=== PATIENT | female | born 1955 | race Caucasian/White ===

== ENCOUNTER → 2017-08-29 | Outpatient (CLI) | payer OTHER | LOC: CVU 06:50 | PROVIDERS: ATTEND Internal Medicine | DX: I70.203 Unspecified atherosclerosis of native arteries of extremities, bilateral legs (principal); I10 Essential (primary) hypertension; E11.51 Type 2 diabetes mellitus with diabetic peripheral angiopathy without gangrene; E78.5 Hyperlipidemia, unspecified; Z87.891 Personal history of nicotine dependence | CPT/HCPCS: 93922; 93925 ==

== ENCOUNTER 2020-05-20 05:57 | Day surgery (SDC) | payer BC, OTHER ==
[~2020-05-20] VITALS: Ht 167.6 cm; Wt 90.6 kg
[2020-05-20] MEDS ORDERED: TRANEXAMIC ACID 100 MG/ML, 10ML ONE ×2 (06:04)
[2020-05-20] MEDS ORDERED: KETOROLAC 60 MG/2 ML ONE (06:04)
[2020-05-20] MEDS ORDERED: ROPIvacaine/PF 0.5%, 20 ML ONE (06:05)
[2020-05-20] MEDS ORDERED: VANCOMYCIN 1,000 MG ONE (06:05)
[2020-05-20] MEDS ORDERED: SODIUM CHLORIDE 0.9% 50 ML ONE (06:05)
[2020-05-20] MEDS ORDERED: EPINEPHRINE 1 MG/ML, 1ML ONE (06:05)
[2020-05-20] MEDS ORDERED: ROPIvacaine/PF 0.5%, 30 ML ONE (06:05)
[2020-05-20] MEDS ORDERED: MIDAZOLAM 1 MG/ML, 2ML ONE (06:30)
[2020-05-20] MEDS ORDERED: FENTANYL PF 250 MCG/5ML ONE ×2 (06:30→08:00)
[2020-05-20] MEDS ORDERED: NEOSTIGMINE 1 MG/ML, 10ML ONE (06:37)
[2020-05-20] MEDS ORDERED: PROPOFOL 10 MG/ML, 20ML ONE (06:37)
[2020-05-20] MEDS ORDERED: GLYCOPYRROLATE 0.2MG/1ML, 5ML ONE (06:37)
[2020-05-20] MEDS ORDERED: DEXAMETHASONE 4 MG/ML, 1ML ONE (06:37)
[2020-05-20] MEDS ORDERED: ONDANSETRON 2MG/ML, 2ML ONE (06:37)
[2020-05-20] MEDS ORDERED: CEFAZOLIN 1,000 MG ONE (06:37)
[2020-05-20] MEDS ORDERED: LISI2.5T PO (06:58)
[2020-05-20] MEDS ORDERED: TRAM50TA2 PO ×2 (06:58→16:36)
[2020-05-20] MEDS ORDERED: MELO15TA24 PO (06:58)
[2020-05-20 06:59] VITALS: BP 183/99
[2020-05-20] MEDS ORDERED: HYDROcodone/APAP 5/325 TABLET PO PRN (07:00)
[2020-05-20] MEDS ORDERED: ACETAMINOPHEN 325 MG TABLET PO PRN ×2 (07:00→07:30)
[2020-05-20] MEDS ORDERED: PLEASE ENTER ALLERGIES MC SCH (07:00)
[2020-05-20] MEDS ORDERED: ZOLPIDEM 5MG TABLET PO PRN (07:00)
[2020-05-20] MEDS ORDERED: ONDANSETRON 2MG/ML, 2ML IV PRN (07:00)
[2020-05-20] MEDS ORDERED: MAGNESIUM HYDROXIDE 8%, 30ML UDC PO PRN (07:00)
[2020-05-20] MEDS ORDERED: SENNA/DOCUSATE TABLET PO PRN (07:00)
[2020-05-20] MEDS ORDERED: BISACODYL 10 MG SUPP PR PRN (07:00)
[2020-05-20] MEDS ORDERED: ONDANSETRON 4 MG TABLET PO PRN (07:00)
[2020-05-20] MEDS ORDERED: DIPHENHYDRAMINE 25 MG CAPSULE PO PRN (07:00)
[2020-05-20] MEDS ORDERED: OXYcodone IR 5MG TABLET PO PRN (07:00)
[2020-05-20] MEDS ORDERED: [UNRECOGNIZED DRUG - REMARK] SC (07:10)
[2020-05-20] MEDS ORDERED: GABAPENTIN 300 MG CAPSULE PO STA (07:27)
[2020-05-20] MEDS ORDERED: ACETAMINOPHEN 500 MG TABLET PO STA (07:27)
[2020-05-20] MEDS ORDERED: ACETAMINOPHEN 500 MG TABLET ONE (07:29)
[2020-05-20] MEDS ORDERED: LACTATED RINGERS 1,000 ML IV SCH (07:30)
[2020-05-20] MEDS ORDERED: morphine SULFATE 10 MG/ML, 1ML IVPush PRN (07:30)
[2020-05-20] MEDS ORDERED: hydrALAzine 20 MG/ML, 1ML IV PRN (07:30)
[2020-05-20] MEDS ORDERED: PROMETHAZINE 25 MG/ML, 1ML IVPush PRN (07:30)
[2020-05-20] MEDS ORDERED: CHLORHEXIDINE 15 ML UDC MM ONE (07:30)
[2020-05-20] MEDS ORDERED: GABAPENTIN 300 MG CAPSULE ONE (07:30)
[2020-05-20] MEDS ORDERED: HALOPERIDOL 5 MG/ML IV PRN (07:30)
[2020-05-20] MEDS ORDERED: LABETALOL 5MG/ML, 20ML IV PRN (07:30)
[2020-05-20] MEDS ORDERED: MEPERIDINE/PF 25MG/0.5ML IVPush PRN (07:30)
[2020-05-20] MEDS ORDERED: PHENYLEPHRINE 10 MG/ML ONE (07:37)
[2020-05-20] MEDS ORDERED: ROCURONIUM 10 MG/ML,10ML ONE (07:37)
[2020-05-20 08:46] LABS: INTERNATIONAL NORMALIZED RATIO 0.96 (0.93-1.1); PROTHROMBIN TIME 10.2 Seconds (9.6-11.5)
[2020-05-20] MEDS ORDERED: FENTANYL PF 100 MCG/2ML ONE (08:56)
[2020-05-20] MEDS ORDERED: LISINOPRIL 5 MG TABLET PO SCH (09:00)
[2020-05-20] MEDS ORDERED: DOCUSATE 100 MG CAPSULE PO SCH (09:00)
[2020-05-20] MEDS: FENTANYL PF 100 MCG/2ML IV PRN ×2 (09:00→09:05)
[2020-05-20] MEDS ORDERED: OXYcodone 5 MG/5 ML ORAL.SOL UDC ONE ×2 (09:03→09:24)
[2020-05-20] MEDS ORDERED: HYDROmorphone 1 MG/ML, 1ML INJ ONE ×2 (09:08→09:23)
[2020-05-20] MEDS: OXYcodone 5 MG/5 ML ORAL.SOL UDC PO PRN ×2 (09:10→09:40)
[2020-05-20] MEDS: HYDROmorphone 1 MG/ML, 1ML INJ IVPush PRN ×3 (09:15→09:30)
[2020-05-20] MEDS: INSULIN LISPRO 100 UNITS/ML, PEN SQ-INSULIN SCH ×2 (11:00→16:00)
[2020-05-20] MEDS ORDERED: NS + 20MEQ KCL 1,000 ML IV SCH (11:00)
[2020-05-20 12:00] VITALS: BP 136/74
[2020-05-20] MEDS ORDERED: CEFAZOLIN PMX 2GM/50ML 50 ML IVPB SCH (15:00)
[2020-05-20] MEDS ORDERED: OXYC5CAP2 PO (16:35)
[2020-05-20] MEDS ORDERED: MELO7.5T5 PO (16:36)
[2020-05-20] MEDS ORDERED: CEPH-368 PO (16:36)
[2020-05-20] MEDS ORDERED: ASPIRIN 81 MG TABLET EC PO SCH (18:00)
[2020-05-21] MEDS ORDERED: DEXAMETHASONE 4 MG/ML, 1ML IVPush SCH (06:00)
== END 2020-05-20 18:30 | disposition home or self-care (01) ==
LOC: OUT 05:57 → 4NE 10:55 → OUT 18:30
PROVIDERS: ATTEND Orthopaedic Surgery
DX: M16.0 Bilateral primary osteoarthritis of hip (principal); M25.752 Osteophyte, left hip; E11.9 Type 2 diabetes mellitus without complications; I10 Essential (primary) hypertension; F17.210 Nicotine dependence, cigarettes, uncomplicated; Z79.01 Long term (current) use of anticoagulants; Z79.1 Long term (current) use of non-steroidal anti-inflammatories (NSAID); Z79.4 Long term (current) use of insulin; Z79.891 Long term (current) use of opiate analgesic; Z79.899 Other long term (current) drug therapy; Z88.2 Allergy status to sulfonamides
CPT/HCPCS: 27130; 72170; 73501; 82962; 83036; 85610; 85730; 87081; 87635; 97162; 97165; C1713; C1776; J0171; J0690; J1100; J1170; J1885; J2250; J2370; J2405; J2704; J2710; J2795; J3010; J3370; J7120; 76000; G0378